=== PATIENT | male | born 1960 | race Caucasian/White ===

== ENCOUNTER 2016-12-13 19:13 | Emergency (ER) | payer BC ==
[2016-12-13 20:30] VITALS: BP 140/84
--- NOTE | 2016-12-13 20:42 | UC ---
Skin Complaint HPI - HPI Summary HPI Summary: ITCHY RASH ALL OVER X 5 DAYS ? FOOD ALLERGY TO PEANUT BUTTER , NO SOB , NO COUGH , NO SWOLLEN THROAT - History of Current Complaint Chief Complaint: UCRash Time Seen by Provider: 12/13/16 20:30 Stated Complaint: SKIN COMPLAINT Hx Obtained From: Patient Onset/Duration: Gradual Onset, Lasting Days - 5, Still Present Timing: Constant Onset Severity: Moderate Current Severity: Moderate Location: Diffuse Character: Pruritus, Hives, Redness Aggravating Factor(s): Other - FOOD Alleviating Factor(s): Nothing Associated Signs & Symptoms: Negative: Nausea, Vomiting, Numbness, Thirst, Diaphoresis, Weakness, Pallor, Shivering, Difficulty Breathing, Fever, Chills, Cough, Wheezing, Chest Pain, Hoarseness, Throat Tightening, Rash, Abdominal Pain , Lightheadedness, Syncope, Drainage, Bruising, Tenderness, Red Streaks, Joint Swelling - Allergy/Home Medications Allergies/Adverse Reactions: Allergies Allergy/AdvReac Type Severity Reaction Status Date / Time Penicillins Allergy Intermediate Hives Verified 12/13/16 20:07 Morphine and Related Allergy Hives Verified 12/13/16 20:09 Review of Systems Constitutional: Negative Skin: Rash Eyes: Negative ENT: Negative Respiratory: Negative Cardiovascular: Negative Is Patient Immunocompromised?: No All Other Systems Reviewed And Are Negative: Yes PMH/Surg Hx/FS Hx/Imm Hx Previously Healthy: Yes - Surgical History Surgical History: Yes Surgery Procedure, Year, and Place: T&A 1968,. FUSION C5-6- 2004, [facility]. RT AND LT KNEE ARTHROSCOPY [place] M[place] [facility] [place] KNEE FOR MENISCUS REPAIR. TOTAL KNEE RIGHT REPLACEMENT, SEP 2016 - Family History Known Family History: Negative: Diabetes - Social History Alcohol Use: Weekly Alcohol Amount: 2 beers weekly Substance Use Type: None Smoking Status (MU): Never Smoked Tobacco Physical Exam Triage Information Reviewed: Yes Appearance: Well-Appearing, No Pain Distress, Well-Nourished Vital Signs: Initial Vital Signs Temp 98.4 F 12/13/16 20:11 Pulse 59 12/13/16 20:11 Resp 18 12/13/16 20:11 BP 140/84 12/13/16 20:11 Pulse Ox 98 12/13/16 20:11 Vital Signs Reviewed: Yes Eyes: Positive: Conjunctiva Clear ENT: Positive: Normal ENT inspection, Hearing grossly normal, Pharynx normal Neck: Positive: Supple, Nontender, No Lymphadenopathy Respiratory: Positive: Chest non-tender, Lungs clear, Normal breath sounds, No respiratory distress Cardiovascular: Positive: RRR, No Murmur, Pulses Normal Abdominal Exam: Normal Abdomen Description: Positive: Nontender, Soft Bowel Sounds: Positive: Present Skin: Positive: rashes - GENERALIZED MACULOPAPULARY RASH Course/Dx - Diagnoses Provider Diagnoses: HIVES. FOOD ALLERGY Discharge - Discharge Plan Condition: Stable Disposition: HOME Prescriptions: Triamcinolone 0.1% CREAM(NF) [Kenalog 0.1% Cream (NF)] 1 applic TOPICAL BID #60 gm predniSONE TAB* [Deltasone TAB*] 40 mg PO DAILY #10 tab Patient Education Materials: Urticaria (ED), Food Allergy (ED) Referrals: Zeferino Olmos MD [Primary Care Provider] - If Needed Additional Instructions: PREDNISONE 40 MG DAILY X 5 DAYS TAKE BENADRYL 25 MG EVERY 4HRS NEEDED
[2016-12-13] MEDS ORDERED: predniSONE TAB* 20 MG PO ONE (20:53)
[2016-12-13] MEDS ORDERED: diPHENhydraMINE PO* 25 MG PO ONE (20:54)
== END 2016-12-13 21:08 | disposition home or self-care (01) ==
LOC: UCCORT 19:13
DX: T78.1XXA Other adverse food reactions, not elsewhere classified, initial encounter (principal); Z88.6 Allergy status to analgesic agent; Z88.0 Allergy status to penicillin; L50.9 Urticaria, unspecified; X58.XXXA Exposure to other specified factors, initial encounter
CPT/HCPCS: 99212; A9270-GY; G0463; J7512

== ENCOUNTER 2017-02-08 17:07 | Emergency (ER) | payer BC ==
--- OUTSIDE RECORDS SUMMARY | 2017-02-08 18:08 | XMS REPORT ---
:1960 External Reference #:[id number] Author Organization [facility] Address [address] [address] Phone [phone] Care Team Providers Name Role Phone Zeferino Olmos MD Care Team Information Vegetable Packer Unavailable Payers Type Date Identification Numbers Payment Provider Subscriber Commercial Effective: Policy Number: BCBS Commercial Fritz Knowles 2011 [id number] Group Number: [id number] [address] [address] PayID: [id number] [place] [address] Problems Date Description Provider Status Onset: 04/17/2013 Pure hypercholesterolemia Zeferino Olmos MD Active Onset: 08/17/2008 Allergic rhinitis Zeferino Olmos MD Active Onset: 08/17/2008 Degeneration of cervical Zeferino Olmos MD Active intervertebral disc Onset: 08/17/2008 Intrinsic asthma without status Zeferino Olmos MD Active asthmaticus Onset: 05/04/2016 History of malignant neoplasm of Zeferino Olmos MD Active skin Onset: 05/04/2016 Mild intermittent asthma Zeferino Olmos MD Active Family History Date Family Member(s) Problem(s) Comments Father due to After hip freacture () Father Hypertension Father Fall/hip fracture Mother Av stenosis Paternal Grandfather due to OR () Maternal Aunts Melanoma Social History Type Date Description Comments Marital Status Lives With Children 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 Occasionally consumes alcohol Smoking Patient has never smoked Allergies, Adverse Reactions, Alerts Date Description Reaction Status Severity Comments 02/24/2014 Penicillin active 03/22/2009 Shrimp active Medications Medication Date Status Form Strength Qnty SIG Indications Ordering Provider Hydroxyzine HCL 02/05/ Active Tablets 25mg 50tabs take 1 L50.0 Digiovanna 2016 tablet by Zeferino mouth up to 4 times daily as needed for itching Cyclobenzaprine 08/16/ Active Tablets 10mg 20tabs take 1 M54.2 Digiovanna HCL 2015 tablet by Zeferino mouth MD every night at bedtime as needed for neck spasm/shanta n M50.30 Ventolin HFA 04/04/2015 Active Aerosol 108(90Base) 8gm 2 puffs J45.20 Digiovanna, mcg/Act every 3 MD Zeferino hours as needed for sob Ibuprofen 12/13/2014 Active Tablets 800mg 100ta Take One M25.569 Digiovanna, bs Tablet MD Zeferino By Mouth Three Times A Day as Needed For Knee Pain M54.2 M50.30 Multi-Vitamin 05/06/2007 Active Tablets 1 PO qd Zeferino Olmos MD Vitamin B12 Active Tablets ER 1000m 1 by mouth D5 Unknown cg every day 1. 9 Ferrous Active Tablets 324(3 take one tablet D5 Unknown Gluconate 8Fe) by mouth twice 0. mg a day 9 Desloratadine Active Tablets 5mg 90t Take 1 Tablet J3 Digiovanna, abs Daily For 0. MD Zeferino Allergies 9 Flu Vaccine 11/16/2014 - Hx 1un dispense one Digiovanna, 11/16/2014 its flu vaccine MD Zeferino dose Fluorescein-Oscar 11/16/2014 - Hx Solution 0.25- 1un dispense one Digiovanna, xinate 11/16/2014 0.4% its flu vaccine MD Zeferino dose Flu & Sore 11/16/2014 - Hx Packet 20-10 1un dispense one Digiovanna, Throat 11/16/2014 -650m its flu vaccine MD Zeferino g dose Famvir 09/10/2014 - Hx Tablets 500mg 21t 1 pill 3 times 05 Digiovanna, 09/17/2014 abs a day for 7 3. MD Zeferino days 9 Zostavax 04/14/2014 - Hx Solution [id number] 1un 1 dose Digiovanna, 04/14/2014 Rec Unt/0 its intramuscular x MD Zeferino .65ML 1 Erythromycin 08/28/2013 - Hx Pads 2% 60m apply bid Digiovanna, 10/11/2013 david Marmolejo MD Ventolin HFA 04/13/2013 - Hx Aerosol 108mc 1Un 2 puffs every 3 49 Digiovanna, 04/04/2015 g/Act its hours as needed 3. MD Zeferino for sob 10 Immunizations CPT Code Status Date Vaccine Reaction Lot # [id number] Given 12/06/2016 Flulaval Immunization SWAIN CHOPPER [id number] Given 12/23/2015 Afluria Imunization 64138 Given 11/10/2012 Afluria Or Fluvirin Flu Vac Intramuscular 65720 Given 02/21/1998 Immunization Td 7 Yrs Or Older Vital Signs Date Vital Result Comment 02/05/2017 Weight 215.00 lb Heart Rate 72 /min BP Systolic 120 mmHg BP Diastolic 80 mmHg Respiratory Rate 18 /min Height 76.5 inches 6'4.50" BMI (Body Mass Index) 25.8 kg/m2 08/22/2016 Weight 216.00 lb Heart Rate 78 /min BP Systolic 122 mmHg BP Diastolic 68 mmHg Respiratory Rate 16 /min Height 76.5 inches 6'4.50" BMI (Body Mass Index) 25.9 kg/m2 05/04/2016 Weight 222.00 lb Heart Rate 60 /min BP Systolic 132 mmHg BP Diastolic 80 mmHg BP Systolic Recheck 120 mmHg L at rest BP Diastolic Recheck 76 mmHg L at rest Respiratory Rate 18 /min Height 76.5 inches 6'4.50" BMI (Body Mass Index) 26.7 kg/m2 08/17/2015 Weight 230.00 lb Heart Rate 74 /min BP Systolic 130 mmHg BP Diastolic 80 mmHg Respiratory Rate 18 /min Height 76 inches 6'4" BMI (Body Mass Index) 28.0 kg/m2 05/04/2015 Weight 231.00 lb Heart Rate 72 /min BP Systolic 120 mmHg BP Diastolic 74 mmHg Height 76 inches 6'4" BMI (Body Mass Index) 28.1 kg/m2 09/10/2014 Body Temperature 97.2 F Weight 237.00 lb Heart Rate 64 /min BP Systolic 134 mmHg L/Reg BP Diastolic 82 mmHg L/Reg Respiratory Rate 18 /min Height 76 inches 6'4" Done On BMI (Body Mass Index) 28.8 kg/m2 04/14/2014 Weight 234.00 lb Heart Rate 80 /min BP Systolic 112 mmHg BP Diastolic 70 mmHg Respiratory Rate 18 /min Height 76 inches 6'4" Done On BMI (Body Mass Index) 28.5 kg/m2 08/28/2013 Body Temperature 97.9 F Weight 243.00 lb Up 4# Heart Rate 58 /min BP Systolic 144 mmHg R/Reg BP Diastolic 90 mmHg R/Reg Respiratory Rate 20 /min Height 76.2 inches 6'4.20" O2 % BldC Oximetry 96 % Ra After Ambulation 04/13/2013 BP Systolic 126 mmHg L at rest BP Diastolic 84 mmHg L at rest 04/13/2013 Weight 239.00 lb Up 9# Heart Rate 74 /min BP Systolic 156 mmHg L/Reg BP Diastolic 92 mmHg L/Reg Respiratory Rate 18 /min Height 76.2 inches 6'4.20" Results Test Date Test Result H/L Range Note Comprehensive Met Panel-[facility] 08/22/2016 Sodium 140 mmol/L 135-146 1 Potassium 4.2 mmol/L 3.5-5.2 Chloride# 102 mmol/L 97-110 2 Carbon Dioxide 31 mmol/L 24-34 Glucose 86 mg/dL 70-105 BUN 17 mg/dL 6-26 Creatinine 0.9 mg/dL 0.5-1.4 Calcium 9.5 mg/dL 8.5-10.2 Total Protein 6.4 g/dL 6.0-8.0 Albumin 4.2 g/dL 3.6-4.9 Globulin 2.2 g/dL 2.0-3.5 A/G Ratio 1.9 Ratio 1.0-2.2 Total Bilirubin 0.7 mg/dL 0.1-1.3 Alkaline Phosphatase 30 U/L 24-140 Alt 16 U/L 3-42 Ast 19 U/L 8-42 Carine Egfr >60 >60 3 Non Carine Egfr >60 >60 4 Anion Gap 11 mmol/L 7-16 5 Laboratory test finding 08/22/2016 Albumin 4.2 g/dL 3.6-4.9 CBC With Auto Diff 08/22/2016 WBC 6.9 K/uL 4.1-11.0 RBC 4.35 M/uL Low 4.60-6.10 Hemoglobin 13.2 gm/dL Low 13.5-18.0 Hematocrit 39.9 % Low 41.0-53.0 MCV 91.6 fL 80.0-97.0 MCH 30.3 pg 27.0-32.0 MCHC 33.1 g/dL 32.0-36.0 RDW 14.0 % 11.5-14.5 PLT Count 230 K/ul 140-400 Neutrophil 59.0 % 35.0-75.0 Lymphocyte 26.2 % 16.0-52.0 Monocyte 8.3 % 2.0-10.0 Eosinophil 4.4 % 0.0-5.0 Basophil 2.1 % 0.0-4.0 Abs Neutrophils 4.1 K/uL 2.1-8.0 Abs Lymphocytes 1.8 K/uL 0.8-5.5 Abs Monocytes 0.6 K/uL 0.1-1.0 Abs Eosinophils 0.3 K/uL 0.0-0.5 Abs Basophils 0.1 K/uL 0.0-0.3 Iron Panel 08/22/2016 Iron, Total 173 g/dL 65-175 Transferrin 257.0 mg/dL 203.0-362.0 Tibc (calc) 360 g/dL 261-478 % Iron Saturation 48.1 % High 13.0-45.0 Laboratory test finding 08/22/2016 Ferritin 104.0 ng/ml 24.0-336.0 Laboratory test finding 06/10/2016 Sedimentation Rate 6 mm/hr 0-20 6, 7 CBC 06/10/2016 White Blood Count 8.6 K/uL 3.4-10.5 6 Red Blood Count 4.23 M/uL 4.20-5.80 6 Hemoglobin 13.2 gm/dL 12.8-17.0 6 Hematocrit 38.9 % 38.0-48.0 6 Mean Cell Volume 92.0 fl 80.0-96.0 6 Mean Corpuscular HGB 31.2 pg 27.0-33.0 6 Mean Corpuscular HGB Conc 33.9 g/dL 31.7-36.0 6 Platelet Count 232 K/uL 150-400 6 Red Cell Distri Width %CV 13.6 % 11.6-15.8 6 Mean Platelet Volume 10.2 fL 6.6-10.6 6 Fluid Culture W/ Gram 06/10/2016 Gram Stain NO ORGANISMS SEE <SEE 6 , 8 Stain NOTE> Gram Stain BY DIRECT SMEAR 6 Fluid Culture NO GROWTH: FINAL <SEE NOTE> 6, 9 Laboratory test finding 06/10/2016 C-Reactive Protein,Quant < 2.9 mg/L <3.0 6 Comprehensive Metabolic 06/10/2016 Glucose 85 mg/dL 74-106 6 Panel BUN 14 mg/dL 7-18 6 Creatinine 0.9 mg/dL 0.6-1.3 6 Glom Filtration Rate, Estimate >60 mL/min >60 6 If >60 mL/min >60 6, 10 BUN/Creat 15.5 ratio 6 Sodium 142 mmol/L 136-145 6 Potassium 4.0 mmol/L 3.5-5.1 6 Chloride 107 mmol/L 98-107 6 Carbon Dioxide 31 mmol/L 21-32 6 Anion Gap 4 mEq/L Low 8-16 6 Calcium 8.5 mg/dL 8.5-10.1 6 Total Protein 6.5 g/dL 6.4-8.2 6 Albumin 3.7 g/dL 3.4-5.0 6 Globulin 2.8 g/dL 1.9-4.3 6 Alb/Glob 1.3 ratio 6 Bilirubin,Total 0.3 mg/dL 0.2-1.0 6 Sgot/Ast 26 U/L 15-37 6 SGPT/Alt 31 U/L 12-78 6 Alkaline Phosphatase 34 U/L Low 45-117 6 Laboratory test finding 04/27/2016 PSA 1.740 ng/mL 0.000-4.000 11 Lipid Treatment 04/27/2016 Cholesterol 211 mg/dL High 50-199 Triglycerides 90 mg/dL 30-200 HDL 44 mg/dL 29-71 12 Chol/ HDL Ratio 4.8 ratio 4.0-6.7 VLDL 18 mg/dL 2-29 LDL (Calc) 149 mg/dL High 20-99 13 Alt 18 U/L 3-42 Ast 20 U/L 8-42 Basic (BMP) 04/27/2016 Sodium 143 mmol/L 135-146 14 Potassium 4.1 mmol/L 3.5-5.2 Chloride# 105 mmol/L 97-110 15 Carbon Dioxide 32 mmol/L 24-34 Glucose 89 mg/dL 70-105 BUN 14 mg/dL 6-26 Creatinine 0.9 mg/dL 0.5-1.4 Calcium 9.6 mg/dL 8.5-10.2 Non Carine Egfr >60 >60 16 Carine Egfr >60 >60 17 Anion Gap 10 mmol/L 7-16 18 Comprehensive Metabolic Panel 09/13/2015 Glucose 101 mg/dL 74-106 BUN 17 mg/dL 7-18 Creatinine 0.9 mg/dL 0.6-1.3 Glom Filtration Rate, Estimate >60 mL/min >60 If >60 mL/min >60 19 BUN/Creat 18.8 ratio Sodium 142 mmol/L 136-145 Potassium 3.9 mmol/L 3.5-5.1 Chloride 106 mmol/L 98-107 Carbon Dioxide 29 mmol/L 21-32 Anion Gap 7 mEq/L Low 8-16 Calcium 8.5 mg/dL 8.5-10.1 Total Protein 7.7 g/dL 6.4-8.2 Albumin 4.1 g/dL 3.4-5.0 Globulin 3.6 g/dL 1.9-4.3 Alb/Glob 1.1 ratio Bilirubin,Total 0.6 mg/dL 0.2-1.0 Sgot/Ast 19 U/L 15-37 SGPT/Alt 24 U/L 12-78 Alkaline Phosphatase 38 U/L Low 45-117 Laboratory test finding 09/13/2015 Lipase 143 U/L 73-393 CBC W/Automated Diff 09/13/2015 White Blood Count 10.5 K/uL 3.4-10.5 Red Blood Count 4.91 M/uL 4.20-5.80 Hemoglobin 15.0 gm/dL 12.8-17.0 Hematocrit 44.2 % 38.0-48.0 Mean Cell Volume 90.0 fl 80.0-96.0 Mean Corpuscular HGB 30.5 pg 27.0-33.0 Mean Corpuscular HGB Conc 33.9 g/dL 31.7-36.0 Platelet Count 220 K/uL 150-400 Red Cell Distri Width SD 43.7 fl 36-51 Red Cell Distri Width %CV 13.5 % 11.6-15.8 Mean Platelet Volume 10.4 fL 6.6-10.6 Neut% 85.9 % High 33.0-73.0 Lymph % 7.0 % Low 17.0-56.0 [place] % 4.4 % 0.0-10.0 Eo% 2.2 % 0.0-5.0 Bas% 0.5 % 0.1-1.0 Neut# 9.04 K/uL High 1.8-7.0 Lymph # 0.74 K/uL Low 1.8-7.0 [place] # 0.46 K/uL 0.0-0.8 Eos # 0.23 K/uL 0.0-0.5 Baso # 0.05 K/uL Low 0.1-0.2 Laboratory test finding 09/13/2015 Slide Review . 20 Magnesium 2.1 mg/dL 1.8-2.4 21 Basic (BMP) 04/27/2015 Sodium 139 mmol/L 134-142 22 Potassium 4.2 mmol/L 3.5-5.2 22 Chloride 104 mmol/L 97-109 22 Carbon Dioxide 29 mmol/L 24-34 22 Glucose 77 mg/dL 70-105 22 BUN 15 mg/dL 6-26 22 Creatinine 0.8 mg/dL 0.5-1.4 22 Calcium 9.3 mg/dL 8.5-10.2 22 Anion Gap 10 mmol/L 6-14 22 Non Carine Egfr >60 >60 22, 23 Carine Egfr >60 >60 22, 24 Lipid Treatment 04/27/2015 Cholesterol 187 mg/dL 50-199 22 Triglycerides 272 mg/dL High 30-200 22 HDL 32 mg/dL 29-71 22, 25 Chol/ HDL Ratio 5.8 ratio 4.0-6.7 22 VLDL 54 mg/dL High 2-29 22 LDL (Calc) 101 mg/dL High 20-99 22, 26 Alt 17 U/L 3-42 22 Ast 19 U/L 8-42 22 Laboratory test finding 04/27/2015 PSA 1.740 ng/mL 0.000-4.000 22, 27 Laboratory test finding 08/26/2013 Alt 20.0 U/L Low 21.0-72.0 28 Ast 19.0 U/L 17.0-59.0 28 Lipid Panel 08/26/2013 Chol/HDL Ratio 5.7 ratio 28 Cholesterol 210.0 mg/dL High 50.0-199.0 28 HDL 37.0 mg/dL 29.0-67.0 28 LDL, Calculated 148.8 mg/dL High 20.0-129.0 28 Triglycerides 121.0 mg/dL 30.0-249.0 28 vLDL 24.2 ng/dL 28 Laboratory test finding 04/13/2013 BUN 16.0 mg/dL 9.0-21.0 BUN/Creat Ratio 20.0 ratio 12.0-20.0 Calcium 9.4 mg/dL 8.7-10.5 Chloride 103.0 mmol/L 98.0-107.0 Cholesterol 236.0 mg/dL High 50.0-199.0 Co2 29.0 mmol/L 22.0-30.0 Creatinine-Serum 0.8 mg/dL 0.8-1.5 Glucose 87.0 mg/dL 75.0-110.0 HDL 39.0 mg/dL 29.0-67.0 PSA 1.4 ng/mL 0.0-4.0 Potasium 3.8 mmol/L 3.6-5.0 Sodium 141.0 mmil/L 137.0-145.0 eGFR 108.8 1 Updated reference range on new analyzer 2 Updated reference range on new analyzer 3 Concerning GFR Guidelines for Americans: Normal function or mild renal disease, if clinically at risk: >/=60 mL/min Moderately decreased: 30-59 Severely decreased: 15-29 Renal failure: <15 4 Concerning GFR Guidelines: Normal function or mild renal disease, if clinically at risk: >/=60 mL/min Moderately decreased: 30-59 Severely decreased: 15-29 Renal failure: <15 Glomerular Filtration Rate (GFR) is estimated based on the MDRD equation, which assumes a steady state for creatinine as recommended by the National Kidney Disease Education Program in conjunction with the National Institutes of Health and the National Kidney Foundation. Clinical conditions in which it may be necessary to measure GFR by using clearance methods include extremes of age and body size, severe malnutrition or obesity, diseases of skeletal muscle, paraplegia or quadriplegia, vegetarian diet, rapidly changing kidney function, and calculation of the dose of potentially toxic drugs that are excreted by the kidneys. 5 Updated reference range on new analyzer 6 RT KNEE NEEDS TO DRAINED 7 Method: Sediplast Modified Westergren 8 NO ORGANISMS SEEN 9 NO GROWTH: FINAL REPORT 10 Note: Persistent reduction for 3 months or more in an eGFR <60 mL/min/1.73 m2 defines CKD. Patients with eGFR values >/=60 mL/min/1.73 m2 may also have CKD if evidence of persistent proteinuria is present. The original MDRD equation for estimated GFR is not valid for patients less than 18 years of age. Additional information may be found at www.kdoqi.org. 11 Beginning 04/08/06 PSA values assayed at [facility] uses chemiluminescence methodology manufactured by [employer] for use on the DXI analyzer. Values obtained with different assay methods or kits can not be used interchangeably. Serum PSA measurement is not an absolute test for malignancy. The PSA value should be used in conjunction with information available from clinical evaluation and other diagnostic procedures. 12 Per NCEP ATP III Guidelines: Results lower than 40 mg/dL are suggestive of increased risk for coronary artery disease. Results > or=to 60 mg/dL are considered a negative risk factor. 13 Per NCEP ATP III Guidelines: Normal Population <130 Patients with medical conditions: CHD/DM Optimal: <100 Borderline high: 130-159 High: 160-189 Very high: >189 14 Updated reference range on new analyzer 15 Updated reference range on new analyzer 16 Concerning GFR Guidelines: Normal function or mild renal disease, if clinically at risk: >/=60 mL/min Moderately decreased: 30-59 Severely decreased: 15-29 Renal failure: <15 Glomerular Filtration Rate (GFR) is estimated based on the MDRD equation, which assumes a steady state for creatinine as recommended by the National Kidney Disease Education Program in conjunction with the National Institutes of Health and the National Kidney Foundation. Clinical conditions in which it may be necessary to measure GFR by using clearance methods include extremes of age and body size, severe malnutrition or obesity, diseases of skeletal muscle, paraplegia or quadriplegia, vegetarian diet, rapidly changing kidney function, and calculation of the dose of potentially toxic drugs that are excreted by the kidneys. 17 Concerning GFR Guidelines for Americans: Normal function or mild renal disease, if clinically at risk: >/=60 mL/min Moderately decreased: 30-59 Severely decreased: 15-29 Renal failure: <15 18 Updated reference range on new analyzer 19 Note: Persistent reduction for 3 months or more in an eGFR <60 mL/min/1.73 m2 defines CKD. Patients with eGFR values >/=60 mL/min/1.73 m2 may also have CKD if evidence of persistent proteinuria is present. The original MDRD equation for estimated GFR is not valid for patients less than 18 years of age. Additional information may be found at www.kdoqi.org. 20 Instrument flagged sample for slide review. No Bands seen, very few atypical lymphocytes seen. RBC morphology essentially normal. Platelet estimate=normal 21 MELD WITH C277 03 MAY 2015 PRE-OV 23 Concerning GFR Guidelines: Normal function or mild renal disease, if clinically at risk: >/=60 mL/min Moderately decreased: 30-59 Severely decreased: 15-29 Renal failure: <15 Glomerular Filtration Rate (GFR) is estimated based on the MDRD equation, which assumes a steady state for creatinine as recommended by the National Kidney Disease Education Program in conjunction with the National Institutes of Health and the National Kidney Foundation. Clinical conditions in which it may be necessary to measure GFR by using clearance methods include extremes of age and body size, severe malnutrition or obesity, diseases of skeletal muscle, paraplegia or quadriplegia, vegetarian diet, rapidly changing kidney function, and calculation of the dose of potentially toxic drugs that are excreted by the kidneys. 24 Concerning GFR Guidelines for Americans: Normal function or mild renal disease, if clinically at risk: >/=60 mL/min Moderately decreased: 30-59 Severely decreased: 15-29 Renal failure: <15 25 Per NCEP ATP III Guidelines: Results lower than 40 mg/dL are suggestive of increased risk for coronary artery disease. Results > or=to 60 mg/dL are considered a negative risk factor. 26 Per NCEP ATP III Guidelines: Normal Population <130 Patients with medical conditions: CHD/DM Optimal: <100 Borderline high: 130-159 High: 160-189 Very high: >189 27 Beginning 04/08/06 PSA values assayed at [facility] uses chemiluminescence methodology manufactured by [employer] for use on the DXI analyzer. Values obtained with different assay methods or kits can not be used interchangeably. Serum PSA measurement is not an absolute test for malignancy. The PSA value should be used in conjunction with information available from clinical evaluation and other diagnostic procedures. 28 RESULTS PRINTED TO PT AT [facility] 08/28 LOWER FAT DIET [facility] 04/25 PRE-OV Procedures Date CPT Code Description Status Comment 08/22/2016 56695 Electrocardiogram Complete Completed 08/17/2015 54952 X-Ray Spine Cervical, 4 Or 5 Completed Views 05/04/2015 09534 Visual Screening Test Completed 09/10/2013 Colonoscopy Completed Document: 09/10/13 - Colonoscopy Encounters Type Date Location Provider CPT E/M Dx Office Visit 08/22/2016 1:15p [facility] Tavia Olmos, [place] [address] Z01.818 M25.561 E78.00 J45.20 J30.9 M50.30 Z85.828 D50.9 Office Visit 05/04/2016 3:45p [facility] [place] [address] Z00.00 E78.00 J45.20 J30.9 M50.30 Z12.5 Z85.828 Office Visit 08/17/2015 9:45a [facility] [place] [address] M54.2 Office Visit 05/04/2015 3:45p [facility] [place] [address] Z00.00 E78.0 J45.20 D48.5 Z12.5 R12 Office Visit 09/10/2014 9:45a [facility] [place] [id number] 053.9 Office Visit 04/14/2014 3:45p [facility] [place] [address] V70.0 272.0 493.10 V76.44 719.46 Plan of Care Future Appointment(s):05/06/2017 7:30 am - Schedule, Laboratory at [facility]2017 3:45 pm - Zeferino Olmos MD at [facility]02/05/2017 - Zeferino Olmos MDL50.0 Allergic urticariaNew Medication:Hydroxyzine HCL 25 mgFollow up:Refer - [facility]
--- NOTE | 2017-02-08 18:12 | UC ---
Skin Complaint HPI - HPI Summary HPI Summary: 56 year old male presents with complains of on going rash. - History of Current Complaint Time Seen by Provider: 02/08/17 18:12 Stated Complaint: SKIN COMPLAINT Hx Obtained From: Patient Onset/Duration: Sudden Onset, Lasting Days Skin Exposure Onset/Duration: Days Ago Onset Severity: Moderate Current Severity: Moderate - Allergy/Home Medications Allergies/Adverse Reactions: Allergies Allergy/AdvReac Type Severity Reaction Status Date / Time Penicillins Allergy Intermediate Hives Verified 02/08/17 18:18 Morphine and Related Allergy Hives Verified 02/08/17 18:18 Review of Systems Constitutional: Negative Skin: Rash Eyes: Negative ENT: Negative Respiratory: Negative Cardiovascular: Negative Gastrointestinal: Negative Genitourinary: Negative Motor: Negative Neurovascular: Negative Musculoskeletal: Negative Neurological: Negative Psychological: Negative All Other Systems Reviewed And Are Negative: Yes PMH/Surg Hx/FS Hx/Imm Hx Previously Healthy: Yes - Surgical History Surgical History: Yes Surgery Procedure, Year, and Place: T&A 1969,. FUSION C5-6- 2004, [facility]. RT AND LT KNEE ARTHROSCOPY FOR MENISCUS 1997 AND 2009, [facility] [place]. 05/24 RT KNEE FOR MENISCUS REPAIR - Family History Known Family History: Negative: Diabetes - Social History Alcohol Use: Occasionally Alcohol Amount: 2 beers weekly Substance Use Type: None Smoking Status (MU): Never Smoked Tobacco Physical Exam Triage Information Reviewed: Yes Vital Signs Reviewed: Yes Eye Exam: Normal ENT Exam: Normal Dental Exam: Normal Neck exam: Normal Neck: Positive: 1 Respiratory Exam: Normal Cardiovascular Exam: Normal Abdominal Exam: Normal Musculoskeletal Exam: Normal Neurological Exam: Normal Psychological Exam: Normal Skin Exam: Normal Skin: Positive: rashes Course/Dx - Diagnoses Provider Diagnoses: rash Discharge - Discharge Plan Condition: Stable Disposition: HOME Prescriptions: Famotidine TAB* [Pepcid 20 MG TAB*] 20 mg PO DAILY #30 tab LoraTADine TAB(NF) [Claritin 10 MG TAB(NF)] 10 mg PO DAILY #30 tab Permethrin [Elimite] 5 % TOPICAL . DIRECTED #1 tube predniSONE TAB* [Deltasone TAB*] 40 mg PO DAILY #10 tab Triamcinolone 0.1% CREAM (NF) [Kenalog 0.1% Cream (NF)] 1 applic TOPICAL TID PRN #85 gm PRN Reason: Itching Patient Education Materials: Urticaria (ED) Referrals: Digiovanna,Zeferino J, MD [Primary Care Provider] -
[2017-02-08 18:18] VITALS: BP 133/83
[2017-02-08] MEDS ORDERED: Famotidine TAB* 20 MG PO ONE (18:36)
[2017-02-08] MEDS ORDERED: methylPREDNISolone 125 MG* 2 ML VIAL IM ONE (18:36)
[2017-02-08] MEDS ORDERED: LoraTADine TAB(NF) 10 MG TAB (AUTOSUB to CETIRIZINE) PO ONE (18:38)
== END 2017-02-08 19:12 | disposition home or self-care (01) ==
LOC: UCCORT 17:07
DX: R21 Rash and other nonspecific skin eruption (principal); Z88.0 Allergy status to penicillin; Z88.5 Allergy status to narcotic agent
CPT/HCPCS: 96372; 99212; A9270-GY; G0463; J2930